=== PATIENT | female | born 1950 | race Caucasian/White ===

== ENCOUNTER 2016-08-17 17:56 | Emergency (ER) ==
[2016-08-17 18:03] VITALS: BP 120/79; TEMP 98.5; BMI 29.3
[2016-08-17 18:28] LABS: BASOPHILS # (AUTO) 0.1 K/uL (0-0.2); BASOPHILS % (AUTO) 1.4 % (0.0-3.0); EOSINOPHILS # (AUTO) 0.1 K/ul (0.0-0.7); HEMATOCRIT 40.8 % (37.0-47.0); HEMOGLOBIN 13.8 g/dl (12.0-16.0); IMMATURE GRANULOCYTE % (AUTO) 0.4 % (0.0-5.0); LYMPHOCYTES # (AUTO) 1.8 K/uL (0.60-3.4); LYMPHOCYTES % (AUTO) 36.1 (10.0-50.0); MEAN CORPUSCULAR HEMOGLOBIN 31.6 pg (27.0-31.0); MEAN CORPUSCULAR HGB CONC 33.8 (31.8-35.4); MEAN CORPUSCULAR VOLUME 93.4 fl (81.0-99.0); MONOCYTES # (AUTO) 0.4 K/uL (0.4-2.0); MONOCYTES % (AUTO) 8.2 (0-10); NEUTROPHILS # (AUTO) 2.7 K/ul (2.0-6.9); NEUTROPHILS % (AUTO) 52.9; PLATELET COUNT 30 10^3/uL (140-440); RED BLOOD COUNT 4.37 10^6/ul (4.20-5.40)
--- NOTE | 2016-08-17 18:38 | ED.PDOC ---
General ED Provider: Dr. VINCENT SCOTT JR Chief Complaint: Non-specific Complaint Stated Complaint: had outpt labs done this am--staff notified that platelets were low and she needed to come to er for eval--[facility]--has downs syndrome--staff member who brought pt does not know results[ End ]98.5 57 16 96% 120/79moderate -downs syndrome-- [id number] [facility]--had out pt labs done this am--notified to come to er for eval[ End ]office helper states she was told normal platelets are 140 to 200 and patent's were 10,. patietn denies concerns states no pain no bruising Time Seen by Physician: 18:37 Mode of Arrival: Walk-In Information Source: Assisted Living Exam Limitations: Other (MR) Primary Care Provider: JEANIE HARTMANN Nursing and Triage Documentation Reviewed and Agree: No Review of Systems - Review Of Systems Constitutional: Reports: No symptoms Eyes: Reports: No symptoms Ears, Nose, Mouth, Throat: Reports: No symptoms Respiratory: Reports: No symptoms Cardiac: Reports: No symptoms GI: Reports: No symptoms : Reports: No symptoms Musculoskeletal: Reports: No symptoms Skin: Reports: No symptoms Neurological: Reports: Cognitive dysfunction Endocrine: Reports: No symptoms Hematologic/Lymphatic: Reports: No symptoms All Other Systems: Other Past Medical History - Past Medical History Previously Healthy: Yes Endocrine: Reports: None Cardiovascular: Reports: None, Other (edema) Respiratory: Reports: None Hematological: Reports: None, Other (low platelets) Gastrointestinal: Reports: None, Other (dysphagia) Genitourinary: Reports: None Neuro/Psych: Reports: None Musculoskeletal: Reports: None Cancer: Reports: None Last Menstrual Period: menopause 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 - Surgical History General Surgical History: Reports: Unknown - Family History Family History: Reports: Unknown - Social History Smoking Status: Never smoker Hx Substance Use: No Alcohol Screening: None Physical Exam - Physical Exam Appearance: Well-appearing, Thin Eyes: KATIE, EOMI, Conjunctiva clear ENT: Ears normal, Nose normal, Oropharynx normal Neck: Supple Respiratory: Airway patent, Breath sounds clear, Breath sounds equal, Respirations nonlabored Cardiovascular: RRR, Pulses normal, No rub, No murmur GI/: Soft, Nontender, No masses, Bowel sounds normal, No Organomegaly Musculoskeletal: Normal strength, ROM intact, No edema, No calf tenderness Skin: Warm, Dry, Normal color (note right fourth finger is slightly bluish at tip no other ecchymoses or petechiae) Neurological: Sensation intact, Motor intact, Reflexes intact, Cranial nerves intact, Alert, Oriented Psychiatric: Affect appropriate, Mood appropriate Critical Care Note - Critical Care Note Total Time (mins): 0 Course - Course Hematology/Chemistry: 08/17/16 18:20 Orders, Labs, Meds: Lab Review 08/17/16 18:20 WBC 5.10 RBC 4.37 Hgb 13.8 Hct 40.8 MCV 93.4 MCH 31.6 H MCHC 33.8 RDW Coeff of Soila 13.3 Plt Count 30 L Immature Gran % (Auto) 0.4 Neut % (Auto) 52.9 Lymph % (Auto) 36.1 [place] % (Auto) 8.2 Eos % (Auto) 1.0 Baso % (Auto) 1.4 Immature Gran # (Auto) 0.0 Neut # 2.7 Lymph # 1.8 [place] # 0.4 Eos # 0.1 Baso # 0.1 Orders Category Date Time Status CBC W/ AUTO DIFF Stat LAB 08/17/16 18:20 Completed Vital Signs: Temp Pulse Resp BP Pulse Ox 08/17/16 17:56 98.5 F 57 L 16 120/79 96 Departure - Departure Time of Disposition: 18:42 Disposition: HOME SELF-CARE Discharge Problem: Idiopathic thrombocytopenia, Down's syndrome Instructions: Thrombocytopenia (ED), Myelodysplastic Syndromes (ED) Condition: Good Pt referred to PMD for follow-up: Yes Additional Instructions: Thrombocytopenia(low platelets) may be associated with bleeding tonight platelets are 30 return if headache black or bloody stools or vomiting return if bruises on three parts of the body or larger than one inch or if painful bruises call PMD in morning for hematology referral recommend recheck platelets weekly until over 50 no ibuprofen(advil) no naprosyn(aleve) no aspirin Allergies/Adverse Reactions: Allergies No Known Allergies Allergy (Unverified 08/17/16 18:05) Home Medications: Ambulatory Orders Acetaminophen [Tylenol] 650 mg PO Q4H PRN 08/17/16 Famotidine 20 mg PO BID 08/17/16 Furosemide [Lasix Tab] 40 mg PO QDAC 08/17/16 Polyvinyl Alcohol [Akwa Tears] 15 ml OP BID 08/17/16 Potassium Chloride [Micro-K Cap] 10 meq PO DAILY 08/17/16
== END 2016-08-17 19:01 | disposition home or self-care (01) ==
LOC: ED 17:56
DX: D69.3 Immune thrombocytopenic purpura (principal); Q90.9 Down syndrome, unspecified; Z79.899 Other long term (current) drug therapy
CPT/HCPCS: 36415; 85025; 99282

== ENCOUNTER 2016-10-21 08:50 | Outpatient (CLI) | payer OTHER ==
--- NOTE | 2016-10-21 11:12 | DI ---
EXAM: Modified barium swallow. History: Difficulty swallowing. Technique: Lateral video fluoroscopy was performed in conjunction with speech therapy using multipl e consistencies to evaluate swallowing function. Findings / impression: No aspiration or penetration was observed. Mild degenerative changes of the visualized cervical spine. Please see dedicated speech pathology report for additional details.
== END 2016-10-21 08:51 | disposition home or self-care (01) ==
LOC: LAB 08:50
PROVIDERS: ATTEND Physician Assistant
DX: R13.10 Dysphagia, unspecified (principal)
CPT/HCPCS: 36415; 84439; 84443

== ENCOUNTER 2016-11-14 15:51 | Outpatient (CLI) ==
--- NOTE | 2016-11-14 16:54 | CT ---
EXAM: CT head without contrast HISTORY: Headache COMPARISON: None. TECHNIQUE: Helical axial CT of the head was performed without contrast. Coronal and sagittal reconst ructions were performed. FINDINGS: There is no acute intracranial abnormality. There is no hemorrhage, mass, midline shift, abnormal e xtra-axial fluid collection, hydrocephalus or evolving ischemia. The ivey-white matter junction is w ell maintained. There is moderate atrophy. There are prominent bilateral symmetric basal ganglia ca lcifications. Brain parenchyma, ventricles and sulci are otherwise normal. There are no acute calvarial lesions. Visualized orbits and globes are unremarkable. The mastoid a ir cells demonstrate no significant soft tissue opacification. The right maxillary sinus is complete ly opacified with dense material consistent with chronic sinusitis. IMPRESSION: 1. No acute intracranial abnormality. 2. Prominent basal ganglia calcifications could be physiologic or metabolic. 3. Atrophy. 4. Chronic right maxillary sinusitis.
--- NOTE | 2016-11-14 16:58 | CT ---
EXAM: CT neck was performed without contrast. TECHNIQUE: Helical axial CT of the neck was performed without contrast with coronal and sagittal re constructions. COMPARISON: CT head from same day HISTORY: Stiff neck and fever FINDINGS: There is no mass or pathologic adenopathy identified. The fat planes of the deep face an d neck are well preserved. The visualized salivary glands are symmetric with no mass lesions or inf lammation. The thyroid gland is unremarkable. The airway is widely patent. There are no tonsillar masses. The tongue is symmetric. The vocal cords are symmetric. There is no focal abnormality see n in the subglottic glottic or supraglottic airway. The visualized orbits are symmetric with no mas s lesions. The lung apices show no infiltrate or masses. There is evidence of old granulomatous dis ease. There are no acute osseous abnormalities. IMPRESSION: 1. No acute abnormality in the neck. Specifically there is no pathologic adenopathy or inflammator y process.
--- NOTE | 2016-11-14 17:12 | DI ---
Exam: Six x-rays of the cervical spine. Comparison: CT soft tissue neck performed on the same day. Reason for exam: Stiff neck. FINDINGS: No acute fracture. There is moderate to marked multilevel degenerative disease with inte rvertebral body disc space height loss and osteophyte formation. The imaged osseous structures are diffusely demineralized. The dens is intact on the Villegas view. The prevertebral soft tissues are w ithin normal limits. The patient is partially edentulous. Impression: 1. No acute fracture is seen within the cervical spine. 2. Moderate to severe multilevel degenerative disease. If clinical concern exists for radiculopath y or myelopathy MRI may be performed.
== END 2016-11-14 15:52 | disposition home or self-care (01) ==
LOC: RAD 15:51
PROVIDERS: ATTEND Physician Assistant
DX: M54.2 Cervicalgia (principal); S16.1XXA Strain of muscle, fascia and tendon at neck level, initial encounter

== ENCOUNTER 2016-12-01 15:25 | Outpatient (CLI) ==
[2016-12-01 15:50] LABS: BASOPHILS # (AUTO) 0.1 K/uL (0-0.2); BASOPHILS % (AUTO) 1.2 % (0.0-3.0); EOSINOPHILS # (AUTO) 0.1 K/ul (0.0-0.7); EOSINOPHILS % (AUTO) 1.4 % (0.0-7.0); HEMATOCRIT 39.5 % (37.0-47.0); HEMOGLOBIN 13.6 g/dl (12.0-16.0); IMMATURE GRANULOCYTE % (AUTO) 0.6 % (0.0-5.0); LYMPHOCYTES # (AUTO) 1.8 K/uL (0.60-3.4); LYMPHOCYTES % (AUTO) 26.8 (10.0-50.0); MEAN CORPUSCULAR HEMOGLOBIN 31.7 pg (27.0-31.0); MEAN CORPUSCULAR HGB CONC 34.4 (31.8-35.4); MEAN CORPUSCULAR VOLUME 92.1 fl (81.0-99.0); MONOCYTES # (AUTO) 0.5 K/uL (0.4-2.0); MONOCYTES % (AUTO) 7.6 (0-10); NEUTROPHILS # (AUTO) 4.1 K/ul (2.0-6.9); NEUTROPHILS % (AUTO) 62.4; RED BLOOD COUNT 4.29 10^6/ul (4.20-5.40); WHITE BLOOD COUNT 6.57 K/ul (4.6-10.2)
[2016-12-01 16:02] LABS: ANION GAP 16.6; BILIRUBIN,TOTAL 0.33 mg/dL (0.00-1.20); BUN/CREATININE RATIO 18.07; CALCIUM 8.7 mg/dL (8.2-10.2); CREATININE 0.83 mg/dL (0.60-1.30); POTASSIUM 3.6 mmol/L (3.5-5.10)
[2016-12-01 16:03] LABS: ALBUMIN 3.4 g/dL (3.4-5.0); ALBUMIN/GLOBULIN RATIO 0.92; TOTAL PROTEIN 7.1 g/dL (5.8-8.1)
[2016-12-01 16:12] LABS: ERYTHROCYTE SEDIMENTATION RATE 28 mm/hr (0-20); ESR INTERNAL QC INTERNAL QC VALID
[2016-12-01 16:44] LABS: PLATELET COUNT 148 10^3/uL (140-440)
== END 2016-12-01 15:26 | disposition home or self-care (01) ==
LOC: LAB 15:25
PROVIDERS: ATTEND Physician Assistant
DX: R51 Headache (principal)
CPT/HCPCS: 36415; 80053; 85025; 85651; 86140

== ENCOUNTER 2016-12-06 10:30 | Outpatient (CLI) | payer OTHER ==
--- NOTE | 2016-12-06 13:00 | DEXA ---
EXAM: Bone densitometry. History: Postmenopausal. Findings: Evaluation of the lumbar spine reveals a total bone mineral density of 1.309 grams per centimeter sq uared with T-score of 1.1. Evaluation of the left hip reveals a total bone mineral density of 0.739 grams per centimeter square d with T-score of negative 2.1. Evaluation of the right hip reveals a total bone mineral density of 0.857 grams per centimeter squar ed with T-score of negative 1.2 Impression: 1. Normal bone mineral density of the lumbar spine. 2. Osteopenia of bilateral hips
--- NOTE | 2016-12-07 10:21 | MRI ---
EXAM: Cervical spine MRI with and without intravenous contrast. HISTORY: Neck pain. COMPARISON: Cervical spine radiographs 11/14/2016 and soft tissue neck 11/14/2016. TECHNIQUE: Multiplanar, multisequence MR images were acquired of the cervical spine before and afte r administration of intravenous contrast. Some of the sequences are degraded by decreased signal-to- noise. FINDINGS: The sella is expanded and the pituitary gland is small and flattened inferiorly consisten t with a mostly empty sella. The craniocervical junction is unremarkable. The cervical cord has no rmal signal intensity. There is no abnormal leptomeningeal contrast enhancement. The patients head is tilted towards the right shoulder. There is mild accentuation of the usual cervical lordosis in the mid cervical spine and mild accentuation of the reversal in curvature to the thoracic kyphosis centered at C7-T1. There is 2 mm retrolisthesis of C2 on C3 and C3 on C4 and 1.2 mm retrolisthesis of C4 on C5. There is minor chronic flattening of the anterior superior endplates of C4 and C5 and mild chronic flattening of the anterior superior endplates of C7 and T1. There is ventral spondylos is in the cervical spine and there is osteophytosis with marked disc space narrowing and mild to mod erate degenerative endplate changes from C2-3 to C7-T1. C1-2: There is inflammation at the articulation between the right lateral masses of C1 and C2 with irregularity of the articular surfaces, subchondral erosions or cysts and synovial perforation with intermediate to slightly bright T1 and bright STIR signal compatible with inflammation or edema. Th is has produced mild destruction of the inferior right C1 lateral mass and moderate destruction of t he superior right C2 lateral mass. These findings are suggestive of an inflammatory arthritis. C2-3: There is retrolisthesis of C2 on C3 which produces a posterior disc osteophyte complex that m ildly indents the cervical cord. Ligamentum flavum hypertrophy indents the posterior cord and there is minor right and mild left hypertrophic facet arthropathy. This causes mild left neural foramina l stenosis and mild spinal stenosis. AP diameter of the thecal sac is 7.2 mm. C3-4: There is retrolisthesis of C3 on C4 which produces a posterior disc osteophyte complex. Left uncovertebral hypertrophy and mild right and minor left facet arthropathy is present. There is mod erate right and mild to moderate left neural foraminal stenosis. Ligamentum flavum hypertrophy is p resent. There is mild spinal stenosis. AP diameter of the thecal sac is 7.2 mm. C4-5: There is a posterior disc osteophyte complex with a small central disc extrusion that extends below the disc level. This mildly indents the ventral cervical cord. Ligament and mild hypertroph y indents the posterior cord. There is bilateral uncovertebral hypertrophy and hypertrophic facet a rthropathy. This causes mild to moderate spinal stenosis and probable moderately severe right and m oderate left neural foraminal stenosis. AP diameter of the thecal sac is 6.5 mm. C5-6: There is a posterior disc osteophyte complex that is asymmetric to the left with a more focal left paracentral component that minimally indents left ventral cervical cord. Ligamentum flavum hy pertrophy, left uncovertebral hypertrophy and mild bilateral facet arthropathy is present, greater o n the right. There is mild to moderate left and mild right neural foraminal stenosis. There is min or spinal stenosis. AP diameter of the thecal sac is 9.4 mm. C6-7: There is a dorsal spondylotic ridge with a more focal central component that is slightly asym metric to the left which minimally indents the cord. Right uncovertebral hypertrophy is present and there is mild spinal stenosis. AP diameter of the thecal sac is 8.5 mm. C7-T1: There is anterolisthesis of C7 on T1 which causes a pseudo disc bulge. This produces mild p rominence of the posterior superior plate of T1 which minimally indents the thoracic cord at the cer vical thoracic junction although cerebrospinal fluid is preserved around the cord. There is no cent ral canal stenosis or foraminal stenosis. IMPRESSION: 1. Extensive cervical degenerative spondylosis from C1-2 to C7-T1. 2. Findings consistent with an inflammatory arthritis involving the articulation between the right lateral masses of C1 and C2. This is associated with mild rightward tilting of the head with respect to the cervical spine. 3. Mild C2-3, C3-4 and C7-T1 and mild to moderate C4-5 spinal stenosis. 4. Moderate discogenic disease C4-5 with small central disc extrusion. 5. Multilevel foraminal stenosis. Cervical CT myelography may be helpful to further define the arya nisa.
== END 2016-12-06 10:31 | disposition home or self-care (01) ==
LOC: RAD 10:30
PROVIDERS: ATTEND Physician Assistant
DX: M54.2 Cervicalgia (principal); Z78.0 Asymptomatic menopausal state

== ENCOUNTER 2017-01-04 07:28 | Outpatient (CLI) | payer OTHER ==
[2017-01-04 07:42] LABS: BASOPHILS # (AUTO) 0.1 K/uL (0-0.2); BASOPHILS % (AUTO) 1.4 % (0.0-3.0); EOSINOPHILS # (AUTO) 0.1 K/ul (0.0-0.7); EOSINOPHILS % (AUTO) 1.4 % (0.0-7.0); HEMATOCRIT 42.8 % (37.0-47.0); HEMOGLOBIN 14.4 g/dl (12.0-16.0); IMMATURE GRANULOCYTE % (AUTO) 0.6 % (0.0-5.0); LYMPHOCYTES # (AUTO) 1.2 K/uL (0.60-3.4); LYMPHOCYTES % (AUTO) 32.3 (10.0-50.0); MEAN CORPUSCULAR HEMOGLOBIN 31.2 pg (27.0-31.0); MEAN CORPUSCULAR HGB CONC 33.6 (31.8-35.4); MEAN CORPUSCULAR VOLUME 92.6 fl (81.0-99.0); MONOCYTES # (AUTO) 0.3 K/uL (0.4-2.0); MONOCYTES % (AUTO) 7.9 (0-10); NEUTROPHILS % (AUTO) 56.4; RED BLOOD COUNT 4.62 10^6/ul (4.20-5.40); WHITE BLOOD COUNT 3.56 K/ul (4.6-10.2)
[2017-01-04 07:44] LABS: PLATELET COUNT 135 10^3/uL (140-440)
== END 2017-01-04 07:29 | disposition home or self-care (01) ==
LOC: LAB 07:28
PROVIDERS: ATTEND Internal Medicine
DX: D69.6 Thrombocytopenia, unspecified (principal)
CPT/HCPCS: 36415; 85025

== ENCOUNTER 2017-01-19 08:07 | Outpatient (CLI) ==
--- NOTE | 2017-01-20 08:42 | MAMMO ---
EXAM: Digital screening mammogram HISTORY: Screening COMPARISON: 04/16/2014 FINDINGS: Digital MLO and CC views of the right and left breast were performed. Computer aided de tection was utilized. There are scattered fibroglandular densities. There is no evidence for mass, asymmetry, distortion, or suspicious calcifications in either breast. IMPRESSION: 1. No evidence of malignancy in the right or left breast. 2. Annual screening mammogram is recommended in one year. BIRADS category 1, negative examination
== END 2017-01-19 08:08 | disposition home or self-care (01) ==
LOC: RAD 08:07
PROVIDERS: ATTEND Family Medicine
DX: Z12.31 Encounter for screening mammogram for malignant neoplasm of breast (principal); Z00.00 Encounter for general adult medical examination without abnormal findings
CPT/HCPCS: 77067

== ENCOUNTER 2017-02-02 11:45 | Outpatient (CLI) | END 2017-02-02 11:46 | disposition home or self-care (01) | LOC: CAR 11:45 | PROVIDERS: ATTEND Physician Assistant | DX: R53.83 Other fatigue (principal) | CPT/HCPCS: 93005; 93010 ==

== ENCOUNTER 2017-02-06 16:33 | Inpatient (IN) ==
[2017-02-06 17:37] LABS: ADD URINE MICROSCOPIC YES; BILIRUBIN,URINE 1+ (NEGATIVE); KETONES,URINE Trace (NEGATIVE); LEUKOCYTE ESTERASE ,URINE 2+ (NEGATIVE); NITRITE,URINE Negative (NEGATIVE); PROTEIN,URINE 1+ (NEGATIVE); URINE, BLOOD Trace-intact (NEGATIVE)
[2017-02-06 17:42] LABS: BACTERIA,URINE 2+ (NOT PRESENT)
[2017-02-06 17:54] LABS: ANION GAP 12.5; BILIRUBIN,TOTAL 0.37 mg/dL (0.00-1.20); BUN/CREATININE RATIO 13.75; CALCIUM 8.7 mg/dL (8.2-10.2); CREATININE 0.8 mg/dL (0.60-1.30); POTASSIUM 3.5 mmol/L (3.5-5.10)
[2017-02-06 18:17] LABS: BASOPHILS % (AUTO) 0.7 % (0.0-3.0); EOSINOPHILS # (AUTO) 0.1 K/ul (0.0-0.7); EOSINOPHILS % (AUTO) 1.4 % (0.0-7.0); HEMATOCRIT 36.9 % (37.0-47.0); HEMOGLOBIN 12.8 g/dl (12.0-16.0); IMMATURE GRANULOCYTE % (AUTO) 1.2 % (0.0-5.0); LYMPHOCYTES # (AUTO) 1.8 K/uL (0.60-3.4); MEAN CORPUSCULAR HEMOGLOBIN 31.6 pg (27.0-31.0); MEAN CORPUSCULAR HGB CONC 34.7 (31.8-35.4); MEAN CORPUSCULAR VOLUME 91.1 fl (81.0-99.0); MONOCYTES # (AUTO) 0.5 K/uL (0.4-2.0); MONOCYTES % (AUTO) 7.7 (0-10); NEUTROPHILS # (AUTO) 3.5 K/ul (2.0-6.9); PLATELET COUNT 110 10^3/uL (140-440); RED BLOOD COUNT 4.05 10^6/ul (4.20-5.40); WHITE BLOOD COUNT 5.86 K/ul (4.6-10.2)
[2017-02-06] MEDS ORDERED: ROCEPHIN 1 GM in SODIUM CHLORIDE 50 ML IV STA (18:24)
--- NOTE | 2017-02-06 18:24 | ED.PDOC ---
General ED Provider: Dr. AIDA BEAVERS Chief Complaint: Diarrhea Stated Complaint: DIARRHEA Time Seen by Physician: 16:33 Mode of Arrival: Walk-In Information Source: Assisted Living Exam Limitations: No limitations Primary Care Provider: ANNEMARIE WOMACK Nursing and Triage Documentation Reviewed and Agree: Yes GI Complaint Exam - Vomiting/Diarrhea Complaint/Exam Onset/Duration: 2 DAYS Symptoms Are: Resolved Episodes of Vomiting over last 24 Hours: 0 Episodes of Diarrhea Over Last 24 Hours: 6 Initial Severity: Mild Current Severity: None Character of Vomiting: Reports: Non-bilious Aggravating: Reports: None Alleviating: Reports: None Associated Signs and Symptoms: Denies: Dizziness, Light-headedness, Melena, Hematemesis, Fever, Abdominal pain, Cramping Non-GI Risk Factors: Reports: None Surgical Obstruction Risk Factors: Reports: None Related Surgical History: Reports: None Abdominal Findings: Present: None Review of Systems - Review Of Systems Constitutional: Reports: No symptoms Eyes: Reports: No symptoms Ears, Nose, Mouth, Throat: Reports: No symptoms Respiratory: Reports: No symptoms Cardiac: Reports: No symptoms GI: Reports: Diarrhea : Reports: No symptoms Musculoskeletal: Reports: No symptoms Skin: Reports: No symptoms Neurological: Reports: No symptoms Endocrine: Reports: No symptoms Hematologic/Lymphatic: Reports: No symptoms All Other Systems: Reviewed and Negative Past Medical History - Past Medical History Previously Healthy: Yes Endocrine: Reports: None Cardiovascular: Reports: None, Other (edema) Respiratory: Reports: None Hematological: Reports: None, Other (low platelets) Gastrointestinal: Reports: None, Other (dysphagia) Genitourinary: Reports: None Neuro/Psych: Reports: None Musculoskeletal: Reports: None Cancer: Reports: None Last Menstrual Period: menopause 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 - Surgical History General Surgical History: Reports: Unknown - Family History Family History: Reports: Unknown - Social History Smoking Status: Never smoker Hx Substance Use: No Alcohol Screening: None Physical Exam - Physical Exam Appearance: Well-appearing, No pain distress, Well-nourished Eyes: KATIE, EOMI, Conjunctiva clear ENT: Ears normal, Nose normal, Dry mucosa Respiratory: Airway patent, Breath sounds clear, Breath sounds equal, Respirations nonlabored Cardiovascular: RRR, Pulses normal, No rub, No murmur GI/: Soft, Nontender, No masses, Bowel sounds normal, No Organomegaly Musculoskeletal: Normal strength, ROM intact, No edema, No calf tenderness Skin: Warm, Dry, Normal color Neurological: Sensation intact, Motor intact, Reflexes intact, Cranial nerves intact, Alert, Oriented Psychiatric: Affect appropriate, Mood appropriate Critical Care Note - Critical Care Note Total Time (mins): 0 Course - Course Hematology/Chemistry: 02/06/17 17:30 02/06/17 17:30 Orders, Labs, Meds: Lab Review 02/06/17 02/06/17 02/06/17 17:30 17:30 17:31 WBC 5.86 RBC 4.05 L Hgb 12.8 Hct 36.9 L MCV 91.1 MCH 31.6 H MCHC 34.7 RDW Coeff of [place]ila 13.4 Plt Count 110 L Immature Gran % (Auto) 1.2 Neut % (Auto) 59.0 Lymph % (Auto) 30.0 [place] % (Auto) 7.7 Eos % (Auto) 1.4 Baso % (Auto) 0.7 Immature Gran # (Auto) 0.1 Neut # 3.5 Lymph # 1.8 [place] # 0.5 Eos # 0.1 Baso # 0.0 Sodium 144 Potassium 3.5 Chloride 105 Carbon Dioxide 30 Anion Gap 12.5 BUN 11 Creatinine 0.80 Estimated GFR (MDRD) 71.00 BUN/Creatinine Ratio 13.75 Glucose 90 Calcium 8.7 Total Bilirubin 0.37 AST 23 ALT 22 Alkaline Phosphatase 78 Total Protein 6.0 Albumin 3.0 L Globulin 3.0 Albumin/Globulin Ratio 1.00 Urine Color Yellow Urine Clarity Cloudy Urine pH 6.0 Ur Specific [place] 1.015 Urine Protein 1+ Urine Glucose (UA) Negative Urine Ketones Trace Urine Blood Trace-intact Urine Nitrite Negative Urine Bilirubin 1+ Urine Urobilinogen 0.2 Ur Leukocyte Esterase 2+ Urine Microscopic WBC 50-100 Ur Squamous Epith Cells 2-5 Ur Transition Epith Cell 0-2 Calcium Oxalate Crystal 1+ Urine Bacteria 2+ Orders Category Date Time Status ADMIT PATIENT INPATIENT .TO [facility] (NON-MONITORED ADMISSION 02/06/17 18: 20 Ordered BED) ACTIVITY .Complete BR CARE 02/06/17 18:20 Ordered INTAKE & OUTPUT Q8HR CARE 02/06/17 18:20 Ordered VITAL SIGNS Q8HR CARE 02/06/17 18:20 Ordered REGULAR DIET DIETARY 02/06/17 Dinner Ordered CBC W/ AUTO DIFF DAILY@0600 LAB 02/07/17 06:00 Ordered CBC W/ AUTO DIFF DAILY@0600 LAB 02/08/17 06:00 Ordered CBC W/ AUTO DIFF DAILY@0600 LAB 02/09/17 06:00 Ordered CBC W/ AUTO DIFF DAILY@0600 LAB 02/10/17 06:00 Ordered CBC W/ AUTO DIFF DAILY@0600 LAB 02/11/17 06:00 Ordered CBC W/ AUTO DIFF DAILY@0600 LAB 02/12/17 06:00 Ordered CBC W/ AUTO DIFF DAILY@06 LAB 02/13/17 06:00 Ordered CBC W/ AUTO DIFF DAILY@06 LAB 02/14/17 06:00 Ordered CBC W/ AUTO DIFF DAILY@0600 LAB 02/15/17 06:00 Ordered CBC W/ AUTO DIFF DAILY@06 LAB 02/16/17 06:00 Ordered CBC W/ AUTO DIFF DAILY@0600 LAB 02/17/17 06:00 Ordered CBC W/ AUTO DIFF DAILY@06 LAB 02/18/17 06:00 Ordered CBC W/ AUTO DIFF DAILY@06 LAB 02/19/17 06:00 Ordered CBC W/ AUTO DIFF DAILY@06 LAB 02/20/17 06:00 Ordered CBC W/ AUTO DIFF DAILY@06 LAB 02/21/17 06:00 Ordered CBC W/ AUTO DIFF DAILY@06 LAB 02/22/17 06:00 Ordered CBC W/ AUTO DIFF DAILY@06 LAB 02/23/17 06:00 Ordered CBC W/ AUTO DIFF DAILY@06 LAB 02/24/17 06:00 Ordered CBC W/ AUTO DIFF DAILY@06 LAB 02/25/17 06:00 Ordered CBC W/ AUTO DIFF DAILY@06 LAB 02/26/17 06:00 Ordered CBC W/ AUTO DIFF Stat LAB 02/06/17 17:30 Completed COMPREHENSIVE METABOLIC PANEL DAILY@0600 LAB 02/07/17 06:00 Ordered COMPREHENSIVE METABOLIC PANEL DAILY@0600 LAB 02/08/17 06:00 Ordered COMPREHENSIVE METABOLIC PANEL DAILY@0600 LAB 02/09/17 06:00 Ordered COMPREHENSIVE METABOLIC PANEL DAILY@0600 LAB 02/10/17 06:00 Ordered COMPREHENSIVE METABOLIC PANEL DAILY@0600 LAB 02/11/17 06:00 Ordered COMPREHENSIVE METABOLIC PANEL DAILY@0600 LAB 02/12/17 06:00 Ordered COMPREHENSIVE METABOLIC PANEL DAILY@0600 LAB 02/13/17 06:00 Ordered COMPREHENSIVE METABOLIC PANEL DAILY@0600 LAB 02/14/17 06:00 Ordered COMPREHENSIVE METABOLIC PANEL DAILY@0600 LAB 02/15/17 06:00 Ordered COMPREHENSIVE METABOLIC PANEL DAILY@0600 LAB 02/16/17 06:00 Ordered COMPREHENSIVE METABOLIC PANEL DAILY@0600 LAB 02/17/17 06:00 Ordered COMPREHENSIVE METABOLIC PANEL DAILY@0600 LAB 02/18/17 06:00 Ordered COMPREHENSIVE METABOLIC PANEL DAILY@0600 LAB 02/19/17 06:00 Ordered COMPREHENSIVE METABOLIC PANEL DAILY@0600 LAB 02/20/17 06:00 Ordered COMPREHENSIVE METABOLIC PANEL DAILY@0600 LAB 02/21/17 06:00 Ordered COMPREHENSIVE METABOLIC PANEL DAILY@0600 LAB 02/22/17 06:00 Ordered COMPREHENSIVE METABOLIC PANEL DAILY@0600 LAB 02/23/17 06:00 Ordered COMPREHENSIVE METABOLIC PANEL DAILY@0600 LAB 02/24/17 06:00 Ordered COMPREHENSIVE METABOLIC PANEL DAILY@0600 LAB 02/25/17 06:00 Ordered COMPREHENSIVE METABOLIC PANEL DAILY@0600 LAB 02/26/17 06:00 Ordered COMPREHENSIVE METABOLIC PANEL Stat LAB 02/06/17 17:30 Completed URINALYSIS C & S IF INDICATED Stat LAB 02/06/17 17:31 Completed URINE CULTURE Stat LAB 02/06/17 16:47 Received Ceftriaxone Sodium [Rocephin] 1 gm MEDS 02/06/17 18:24 Ordered 0.9 % Sodium Chloride [Sodium Chloride] 50 ml IV ONCE Metronidazole [Metrocream] MEDS 02/06/17 21:00 Ordered 45 gm TP BID Polyvinyl Alcohol [Artificial Tears Opth Alise] MEDS 02/06/17 21:00 Ordered 15 ml OP BID Sodium Chloride 0.9% [Sodium Chloride] 1,000 ml MEDS 02/06/17 18:30 Ordered IV 75 mls/hr Medications Generic Name Dose Route Start Last Admin Trade Name Freq PRN Reason Stop Dose Admin Artificial Tears drop 02/06/17 21:00 Artificial Tears Opth Alise OP BID YULISSA Sodium Chloride 1,000 mls @ 75 mls/hr 02/06/17 18:30 Sodium Chloride IV .[id number] YULISSA Non-Formulary Medication 45 gm 02/06/17 21:00 Metronidazole [Metrocream] TP BID YULISSA Vital Signs: Temp Pulse Resp BP Pulse Ox 02/06/17 16:33 99.4 F 59 L 20 123/74 96 Departure - Departure Time of Disposition: 18:23 Disposition: ADMITTED INPATIENT Discharge Problem: Diarrhea, Dehydration, UTI (urinary tract infection) Instructions: Dehydration (ED) Condition: Fair Pt referred to PMD for follow-up: Yes Allergies/Adverse Reactions: Allergies No Known Allergies Allergy (Verified 02/06/17 16:42) Home Medications: Ambulatory Orders Acetaminophen [Tylenol] 650 mg PO Q4H PRN 08/17/16 Polyvinyl Alcohol [Akwa Tears] 15 ml OP BID 08/17/16 Calcium Carbonate/Vitamin D3 [Calcium 600 + Vit D 400 Tablet] 1 each PO DAILY Metronidazole [Metrocream] 45 gm TP BID 02/06/17 Omeprazole [Prilosec] 20 mg PO QDAC 02/06/17
[2017-02-06] MEDS ORDERED: ROCEPHIN ONE (18:35)
[2017-02-06] MEDS: SODIUM CHLORIDE 1,000 ML IV SCH (18:47)
[2017-02-06 20:19] VITALS: BMI 27.4
[2017-02-06] MEDS ORDERED: METRONIDAZOLE 45 GM TP SCH (21:00)
[2017-02-07 05:45] LABS: ALBUMIN 2.7 g/dL (3.4-5.0); ALBUMIN/GLOBULIN RATIO 1.08; ANION GAP 12.4; BILIRUBIN,TOTAL 0.44 mg/dL (0.00-1.20); BUN/CREATININE RATIO 12.32; CALCIUM 8.1 mg/dL (8.2-10.2); CREATININE 0.73 mg/dL (0.60-1.30); POTASSIUM 3.4 mmol/L (3.5-5.10); TOTAL PROTEIN 5.2 g/dL (5.8-8.1)
[2017-02-07 06:09] LABS: BASOPHILS % (AUTO) 0.8 % (0.0-3.0); EOSINOPHILS # (AUTO) 0.1 K/ul (0.0-0.7); EOSINOPHILS % (AUTO) 1.5 % (0.0-7.0); HEMATOCRIT 34.3 % (37.0-47.0); HEMOGLOBIN 11.9 g/dl (12.0-16.0); IMMATURE GRANULOCYTE % (AUTO) 0.6 % (0.0-5.0); LYMPHOCYTES # (AUTO) 1.6 K/uL (0.60-3.4); LYMPHOCYTES % (AUTO) 33.6 (10.0-50.0); MEAN CORPUSCULAR HEMOGLOBIN 31.8 pg (27.0-31.0); MEAN CORPUSCULAR HGB CONC 34.7 (31.8-35.4); MEAN CORPUSCULAR VOLUME 91.7 fl (81.0-99.0); MONOCYTES # (AUTO) 0.4 K/uL (0.4-2.0); NEUTROPHILS # (AUTO) 2.6 K/ul (2.0-6.9); NEUTROPHILS % (AUTO) 54.5; RED BLOOD COUNT 3.74 10^6/ul (4.20-5.40); WHITE BLOOD COUNT 4.76 K/ul (4.6-10.2)
[2017-02-07 06:11] LABS: PLATELET COUNT 79 10^3/uL (140-440)
[2017-02-07] MEDS ORDERED: K-DUR PO STA (08:19)
[2017-02-07] MEDS: SODIUM CHLORIDE 1,000 ML IV SCH ×2 (09:49→23:24)
[2017-02-07] MEDS: ARTIFICIAL TEARS OPTH SOL OP SCH ×3 (09:50→21:00)
[2017-02-07] MEDS: ROCEPHIN 1 GM in SODIUM CHLORIDE 50 ML IV SCH (09:51)
[2017-02-07] MEDS: METRONIDAZOLE 45 GM TP SCH ×2 (09:52→20:46)
--- NOTE | 2017-02-07 16:39 | CT ---
EXAM: CT Abdomen without contrast. CT Pelvis without contrast. HISTORY: Lower abdominal pain, diarrhea. COMPARISON: None available. TECHNIQUE: Multiple axial images of the abdomen and pelvis were obtained without intravenous contras t. Images were reformatted in the coronal plane. FINDINGS: Please note that evaluation of the abdominal and pelvic structures is limited due to lack of intravenous contrast. Areas of subsegmental atelectasis noted in the lung bases. Calcified granuloma seen in the right low er lobe. Moderate sized hiatal hernia is present. There is no evidence for bowel obstruction or acu te inflammation. The appendix is normal. The liver, gallbladder, pancreas, spleen, adrenal glands, and kidneys demonstrate normal contour. No calcified renal stones or hydronephrosis identified. Circumscribed rounded mass in the region of the cervix measures up to 8.5 x 7.9 x 7.7 centimeters on axial image 69 and coronal image 40. Along the right posterior aspect of this structure is an additi onal 4.2 x 3.1 x 4.3 cm soft tissue density structure seen on axial image 65 and coronal image 56. U terine contour is normal. Urinary bladder is unremarkable. No free fluid or free air identified. IMPRESSION: 1. Large soft tissue mass in the region of the cervix with smaller adjacent right pelvic mass. Felix elation with pelvic ultrasound or pelvic MRI recommended for further characterization. 2. Moderate sized hiatal hernia.
[2017-02-08 05:29] LABS: BASOPHILS # (AUTO) 0.1 K/uL (0-0.2); BASOPHILS % (AUTO) 1.1 % (0.0-3.0); EOSINOPHILS # (AUTO) 0.1 K/ul (0.0-0.7); HEMATOCRIT 36.4 % (37.0-47.0); HEMOGLOBIN 12.2 g/dl (12.0-16.0); IMMATURE GRANULOCYTE % (AUTO) 1.1 % (0.0-5.0); LYMPHOCYTES # (AUTO) 1.3 K/uL (0.60-3.4); LYMPHOCYTES % (AUTO) 28.7 (10.0-50.0); MEAN CORPUSCULAR HEMOGLOBIN 31.1 pg (27.0-31.0); MEAN CORPUSCULAR HGB CONC 33.5 (31.8-35.4); MEAN CORPUSCULAR VOLUME 92.9 fl (81.0-99.0); MONOCYTES # (AUTO) 0.4 K/uL (0.4-2.0); MONOCYTES % (AUTO) 8.6 (0-10); NEUTROPHILS # (AUTO) 2.7 K/ul (2.0-6.9); NEUTROPHILS % (AUTO) 58.5; RED BLOOD COUNT 3.92 10^6/ul (4.20-5.40); WHITE BLOOD COUNT 4.56 K/ul (4.6-10.2)
[2017-02-08 05:37] LABS: PLATELET COUNT 35 10^3/uL (140-440)
[2017-02-08 06:04] LABS: ALBUMIN 2.4 g/dL (3.4-5.0); ALBUMIN/GLOBULIN RATIO 0.89; BILIRUBIN,TOTAL 0.3 mg/dL (0.00-1.20); BUN/CREATININE RATIO 10.6; CALCIUM 7.9 mg/dL (8.2-10.2); CREATININE 0.66 mg/dL (0.60-1.30); TOTAL PROTEIN 5.1 g/dL (5.8-8.1)
[2017-02-08] MEDS: ROCEPHIN 1 GM in SODIUM CHLORIDE 50 ML IV SCH (08:49)
[2017-02-08] MEDS: ARTIFICIAL TEARS OPTH SOL OP SCH ×2 (08:50→20:22)
[2017-02-08] MEDS: METRONIDAZOLE 45 GM TP SCH ×2 (08:50→20:22)
--- NOTE | 2017-02-08 14:25 | HP ---
DATE OF SERVICE: 02/06/17 CHIEF COMPLAINT: Diarrhea HISTORY OF PRESENT ILLNESS: This is a 66-year-old female who is a [facility] resident. She was sent from there for evaluation. The patient has been having diarrhea on and off for 1 1/2 weeks. A couple of residents at the assisted facility are also having the same, watery, nonbloody, has some abdominal cramping, decreased appetite, not eating much or drinking much. The blood pressure was somewhat low at the facility and the patient was sent for evaluation. In the emergency room, the temperature was 99.4, blood pressure 123. Dr. Correa saw the patient and the patient was clinically totally dehydrated. Initial blood pressure was 81/48. The patient was started on IV fluids there. Blood work was ordered. Low white count. Platelet count 110. BUN and creatinine were normal. Urine was cloudy and leukocyte esterase positive. Bacteria positive. At that time, the patient was admitted to the hospital for IV hydration, treatment of acute diarrhea and treatment of UTI. REVIEW OF SYSTEMS: CONSTITUTIONAL: Weakness, tiredness. No fever, no chills. HEENT: Normal. ENDOCRINE: No weight gain; no weight loss. CVS: No chest pain. No PND, no orthopnea. No shortness of breath. No PND, no orthopnea. RESPIRATORY: No cough, no congestion. No hemoptysis. GI: Diarrhea. Abdominal cramping. Unable to eat or drink much. No nausea, no vomiting. No melena. : No hematuria. No polyuria. MUSCULOSKELETAL: No joint swelling. PSYCHIATRIC: Not anxious. No depression. No suicidal thoughts. No homicidal thoughts. SKIN: Intact, no open lesions. PAST MEDICAL HISTORY: 1. History of stomach ulcer 2. Down's syndrome 3. Dependent upon ADLs PAST SURGICAL HISTORY: 1. None PERSONAL HISTORY: The patient does not smoke or drink. She lives at the assisted living facility. FAMILY HISTORY: Significant for cancer. Not able to obtain much. MEDICATIONS: (HOME) 1. Tylenol 2. Teardrops 3. Calcium with Vitamin D 4. Prilosec 5. Metoprolol ALLERGIES: NKDA PHYSICAL EXAMINATION: V/S: BP 81/48, respiratory rate 16, heart rate 51, temperature 97.1, saturation 97. HEENT: Atraumatic, normocephalic. No scleral icterus. Pallor positive. Mucosa dry. NECK: Supple. No JVD, no bruit. No lymphadenopathy. No thyromegaly. HEART: S1, S2 normal. No murmur. No cyanosis or clubbing. No ascites. LUNGS: Clear to auscultation. No rales or rhonchi. ABDOMEN: Soft; discomfort all over. Bowel sounds are active. No CVA tenderness. No rigidity or guarding. EXTREMITIES: No cyanosis, clubbing or pedal edema. MUSCULOSKELETAL: Normal joints, no swelling. NEUROLOGIC: The patient is awake, alert, does not communicate much. SKIN: Intact; no open lesions. LYMPHATIC: No lymph nodes palpable. LABS: Urine is cloudy. Leukocyte esterase is positive. Bacteria positive. Sodium 144, potassium 3.5, chloride 105, bicarb 30, BUN 11, creatinine 0.80. White count 5.86, hemoglobin 12.8, hematocrit 36.1, platelet count 110. ASSESSMENT: 1. ACUTE GASTROENTERITIS 2. DEHYDRATION 3. THROMBOCYTOPENIA 4. DEVELOPMENTAL DELAY 5. DOWN'S SYNDROME 6. UTI PLAN: 1. Admit the patient to Regular Floor 2. IV fluids 3. Rocephin 1 gm daily 4. Continue home medications 5. Daily I & O's TIME SPENT: MORE THAN 70 minutes MTDD
--- NOTE | 2017-02-08 14:54 | US ---
EXAM: PELVIC ULTRASOUND COMPLETE HISTORY: Pelvic mass suggested on recent CT. FINDINGS: Ultrasound pelvis transabdominal. The uterus was measured at 13.8 x 6.7 x 4.6 cm. It appears the endometrial canal is distended with d iffusely homogeneous substance and there are also areas of more soft tissue like echogenicity. At le ast one small endometrial mass or polyp is suggested measuring 0.57 cm in greatest dimension. No dis tinct endometrial stripe was seen. The ovaries were not seen. There is a small amount of left adnex al ascites. IMPRESSION: Complex pelvic findings include what may represent distension of the endometrial canal with echogenic substance/fluid and possible endometrial masses. Neoplasia is within the differential diagnosis. Fu rther imaging could include pelvic MRI.
[2017-02-08] MEDS: SODIUM CHLORIDE 1,000 ML IV SCH (15:40)
[2017-02-08] MEDS: TYLENOL PO PRN (16:32)
[2017-02-09] MEDS: SODIUM CHLORIDE 1,000 ML IV SCH ×2 (03:50→22:29)
[2017-02-09 05:10] LABS: BASOPHILS # (AUTO) 0.1 K/uL (0-0.2); EOSINOPHILS # (AUTO) 0.2 K/ul (0.0-0.7); EOSINOPHILS % (AUTO) 3.1 % (0.0-7.0); HEMATOCRIT 34.3 % (37.0-47.0); HEMOGLOBIN 11.6 g/dl (12.0-16.0); IMMATURE GRANULOCYTE % (AUTO) 0.8 % (0.0-5.0); LYMPHOCYTES # (AUTO) 1.5 K/uL (0.60-3.4); LYMPHOCYTES % (AUTO) 29.2 (10.0-50.0); MEAN CORPUSCULAR HEMOGLOBIN 31.4 pg (27.0-31.0); MEAN CORPUSCULAR HGB CONC 33.8 (31.8-35.4); MONOCYTES # (AUTO) 0.5 K/uL (0.4-2.0); MONOCYTES % (AUTO) 8.7 (0-10); NEUTROPHILS % (AUTO) 57.2; RED BLOOD COUNT 3.69 10^6/ul (4.20-5.40); WHITE BLOOD COUNT 5.18 K/ul (4.6-10.2)
[2017-02-09 05:19] LABS: PLATELET COUNT 72 10^3/uL (140-440)
[2017-02-09 05:43] LABS: ALBUMIN 2.4 g/dL (3.4-5.0); ALBUMIN/GLOBULIN RATIO 1.04; ANION GAP 7.6; BILIRUBIN,TOTAL 0.3 mg/dL (0.00-1.20); BUN/CREATININE RATIO 9.52; CALCIUM 7.6 mg/dL (8.2-10.2); CREATININE 0.63 mg/dL (0.60-1.30); POTASSIUM 3.6 mmol/L (3.5-5.10); TOTAL PROTEIN 4.7 g/dL (5.8-8.1)
[2017-02-09] MEDS: ARTIFICIAL TEARS OPTH SOL OP SCH ×2 (08:26→20:33)
[2017-02-09] MEDS: METRONIDAZOLE 45 GM TP SCH ×2 (08:27→20:34)
[2017-02-09] MEDS: ROCEPHIN 1 GM in SODIUM CHLORIDE 50 ML IV SCH (08:27)
[2017-02-09] MEDS: TYLENOL PO PRN (08:36)
[2017-02-10 05:30] LABS: ALBUMIN 2.5 g/dL (3.4-5.0); ALBUMIN/GLOBULIN RATIO 0.89; ANION GAP 12.4; BILIRUBIN,TOTAL 0.33 mg/dL (0.00-1.20); BUN/CREATININE RATIO 9.23; CALCIUM 7.8 mg/dL (8.2-10.2); CREATININE 0.65 mg/dL (0.60-1.30); POTASSIUM 4.4 mmol/L (3.5-5.10); TOTAL PROTEIN 5.3 g/dL (5.8-8.1)
[2017-02-10 07:06] LABS: BASOPHILS # (AUTO) 0.1 K/uL (0-0.2); BASOPHILS % (AUTO) 0.7 % (0.0-3.0); EOSINOPHILS # (AUTO) 0.1 K/ul (0.0-0.7); EOSINOPHILS % (AUTO) 1.5 % (0.0-7.0); HEMATOCRIT 32.3 % (37.0-47.0); HEMOGLOBIN 10.9 g/dl (12.0-16.0); IMMATURE GRANULOCYTE % (AUTO) 0.9 % (0.0-5.0); LYMPHOCYTES # (AUTO) 1.7 K/uL (0.60-3.4); LYMPHOCYTES % (AUTO) 24.9 (10.0-50.0); MEAN CORPUSCULAR HEMOGLOBIN 31.6 pg (27.0-31.0); MEAN CORPUSCULAR HGB CONC 33.7 (31.8-35.4); MEAN CORPUSCULAR VOLUME 93.6 fl (81.0-99.0); MONOCYTES # (AUTO) 0.4 K/uL (0.4-2.0); NEUTROPHILS # (AUTO) 4.5 K/ul (2.0-6.9); RED BLOOD COUNT 3.45 10^6/ul (4.20-5.40); WHITE BLOOD COUNT 6.87 K/ul (4.6-10.2)
[2017-02-10 07:07] LABS: PLATELET COUNT 89 10^3/uL (140-440)
[2017-02-10] MEDS: ROCEPHIN 1 GM in SODIUM CHLORIDE 50 ML IV SCH (08:21)
[2017-02-10] MEDS: ARTIFICIAL TEARS OPTH SOL OP SCH (08:21)
[2017-02-10] MEDS: SODIUM CHLORIDE 1,000 ML IV SCH (09:00)
[2017-02-10] MEDS: METRONIDAZOLE 45 GM TP SCH (09:01)
[2017-02-10 09:27] VITALS: BP 110/58; TEMP 97.6
--- NOTE | 2017-02-10 09:34 | PN ---
DATE OF SERVICE: 02/07/17 SUBJECTIVE: The patient was admitted with gastroenteritis and dehydration. The patient does not have any diarrhea since admission. Blood pressure been improved. REVIEW OF SYSTEMS: CONSTITUTIONAL: No fever, no chills. HEENT: Normal. ENDOCRINE: No weight gain, no weight loss. CVS: No angina symptoms. No CHF symptoms. No palpitations. No atypical chest pain for CAD. No shortness of breath. No PND, no orthopnea. RESPIRATORY: No cough, no hemoptysis. GI: No nausea, no vomiting. Abdominal discomfort is still complaint. : No hematuria. No polyuria. MUSCULOSKELETAL:. No joint swelling. PSYCHIATRIC: Not anxious. No depression. No suicidal thoughts. No homicidal thoughts. SKIN: Intact. No rash. PHYSICAL EXAMINATION: V/S: Blood pressure 108/56, respiratory rate 20, heart rate 55, temperature 97.9 with saturation 95% on the room air. HEENT: Normocephalic, atraumatic. Mucosa dry. Pallor positive. No icterus. NECK: Supple. No JVD, no carotid bruit. No lymphadenopathy. LUNGS: Clear to auscultation. No rales or rhonchi. HEART: S1, S2 normal. No S3. No murmur, gallop or regurgitation. ABDOMEN: Epigastric discomfort present. Soft, nontender. Bowel sounds active. No rigidity. No rebound or guarding. No CVA tenderness. EXTREMITIES: No clubbing, cyanosis or pedal edema. MUSCULOSKELETAL: No joint swelling. NEUROLOGIC: Awake, alert but does not communication much secondary to the mental defect. No focal deficit. LYMPHATIC: No lymph nodes palpable. SKIN: Intact. ASSESSMENT: 1. Dehydration 2. Gastroenteritis 3. Urinary tract infection 4. Developmental delay 5. Down Syndrome 6. Hypokalemia PLAN: 1. Continue the Rocephin 2. Continue the IV fluids 3. Artificial drops 4. Replace the Potassium Will follow the patient in daily rounds. TIME SPENT: More than 35 minutes MTDD
--- NOTE | 2017-02-10 10:34 | MRI ---
EXAM: MRI pelvis without and with contrast HISTORY: Pelvic mass TECHNIQUE: Multiplanar, multisequence without and following the administration of intravenous Omnisc an, 10 mL COMPARISON: CT pelvis from 02/07/2017 and pelvic sonogram from 02/08/2017 FINDINGS: The uterus is enlarged up to 11.2 x 5.9 x 6.7 cm. The endometrial canal is distended with complex intraluminal material with increased T1 signal and intermediate increased T2 signal. A smal l simple cyst in the left ovary is 1.1 cm. The right fallopian tube is distended with bright T1 sign al material. There is a complex mass at the right ovary measuring 2.9 x 2.9 cm. The bladder is dist ended. A small volume free pelvic fluid is noted. No lymphadenopathy is detected. The intestines h ave normal caliber. The visible vascular structures have normal caliber. The bone marrow signal int ensity is normal. Bilateral hip joint effusions are noted. IMPRESSION: 1. Probable cervical stenosis with hematometra and right hematosalpinx. 2. Complex right adnexal mass. Resection and/or short-term follow-up recommended. 3. Gynecology consultation recommended. 4. Small volume of free pelvic fluid. 5. Distended bladder.
--- NOTE | 2017-02-16 14:04 | PN ---
DATE OF SERVICE: 02/08/17 SUBJECTIVE: The patient was admitted with gastroenteritis and found to have UTI and thrombocytopenia. The patient looks somewhat better, still eating and drinking good. CT of abdomen showed some pelvic mass and they wanted a pelvic ultrasound or MRI to be ordered. We will order the pelvic ultrasound initial for the further evaluation. REVIEW OF SYSTEMS: CONSTITUTIONAL: No fever, no chills. HEENT: Normal. ENDOCRINE: No weight gain, no weight loss. CVS: No angina symptoms. No CHF symptoms. No palpitations. No atypical chest pain for CAD. No shortness of breath. No PND, no orthopnea. RESPIRATORY: No cough, no hemoptysis. GI: No nausea, no vomiting. No abdominal pain. : No hematuria. No polyuria. MUSCULOSKELETAL:. No joint swelling. PSYCHIATRIC: Not anxious. No depression. No suicidal thoughts. No homicidal thoughts. SKIN: Intact. No rash. PHYSICAL EXAMINATION: V/S: Blood pressure 108/70, respiratory rate 20, heart rate 65, temperature 96.8 , saturation 98. HEENT: Normocephalic, atraumatic. Mucosa dry. Pallor positive. No icterus. NECK: Supple. No JVD, no carotid bruit. No lymphadenopathy. LUNGS: Decreased and clear to auscultation. No rales or rhonchi. HEART: S1, S2 normal. No S3. No murmur, gallop or regurgitation. ABDOMEN: Soft, nontender. Bowel sounds active. No rigidity. No rebound or guarding. No CVA tenderness. EXTREMITIES: No clubbing, cyanosis. 1+ edema. MUSCULOSKELETAL: No joint swelling. NEUROLOGIC: Awake, alert, oriented times three. No focal deficit. Communicates very little. LYMPHATIC: No lymph nodes palpable. SKIN: Intact. LABS: WBC 4.56, hgb 12.2, hct 36.4, plt count 35, sodium 142, potassium 4.0, chloride 113, bicarb 23, BUN 7, creatinine 0.66, total albumin 2.4 ASSESSMENT: 1. Pelvic mass under evaluation 2. Gastroenteritis 3. Dehydration getting better 4. UTI, organism is a mixed growth 5. Developmental delay 6. Downs Syndrome PLAN: 1. Pelvic ultrasound 2. IV fluids 3. Daily I&O's Will follow the patient in daily rounds. TIME SPENT: More than 35 minutes MTDD
--- NOTE | 2017-02-16 15:02 | DS ---
DATE OF SERVICE: 02/10/17 FINAL DIAGNOSIS: 1. Pelvic mass questionable for complex right adnexal mass likely neoplastic per MRI of the pelvis 2. Gastroenteritis 3. Dehydration is better 4. Anemia 5. Thrombocytopenia 6. Hypokalemia, resolved 7. Hypoproteinemia 8. Developmental delay 9. Downs Syndrome 10.UTI, mixed ifeoma 11.History of peptic ulcer disease. DISCHARGE INSTRUCTIONS: Discharge the patient back to the [facility]. Continue previous medications. Scheduled appointment with OBGYN. Followup with Claudia Ryan next week. MEDICATIONS AT DISCHARGE: Tylenol 325mg PO Q 4 hours PRN Akwa Tears 15ml OP twice a day Calcium 600+ Vitamin D 400 one each PO twice a day Prilosec 40mg PO QDAC Metrocream 45gram TP twice a day NEW PRESCRIPTIONS: None. DIET INSTRUCTIONS: Cardiac and healthy ACTIVITY: As much as tolerated. SMOKING: Never Smoker DISEASE SPECIFIC EDUCATION: Clearly explained about the pelvic mass as patient has a poor understanding. Talked to the patient's doggy daycare activities director at [facility] and clearly explained by the need for the followup with OBGYN and they verbalized understanding. HOSPITAL COURSE: Kathia Palma who is being followed by Claudia Ryan, Nurse Practitioner at [facility]. The patient been having the diarrhea and not able to keep anything down, not able to hold any been having soiled clothes so was sent to the emergency room for the evaluation and the patient was found to be dehydrated. Dr. Correa saw the patient in the emergency room and did the CT of the abdomen and pelvis. CT of the abdomen did show the large soft tissue pelvic mass otherwise no acute finding and she had a moderate hiatal hernia. At that time the patient was admitted to the hospital and started on the IV fluids. UTI is being treated with the Rocephin and waited for the culture. Meanwhile the pelvic mass was evaluate with the ultrasound which was questionable neoplastic and they wanted to be MRI of the pelvis. Meanwhile the patient is more active, up and about walking, eating good and talking good. The patient did not have anymore diarrhea. UTI organism did not grown just was mixed ifeoma. The patient' s IV line was out so Rocephin was stopped as it did not grown any organism. Meanwhile MRI of the pelvis confirmed that patient has a pelvic mass and needs to further evaluated by the OBGYN and most likely that adnexal mass is maybe a tumor so which been discussed with the patient's special education case manager at the [facility] and by Deann Lynch, special education case manager at the [facility] and I am going to talk to Claudia Ryan in the clinic and directly inform her about the seriously of the condition and the need for the OBGYN followup. TIME SPENT: MORE THAN 55 MINUTES MTDD
== END 2017-02-10 14:39 | disposition home or self-care (01) | DRG 392 ==
LOC: ED 16:33 → MEDSURG B 18:50
PROVIDERS: ADMIT Emergency Medicine; ATTEND Emergency Medicine
DX: K52.9 Noninfective gastroenteritis and colitis, unspecified (principal); N39.0 Urinary tract infection, site not specified; R19.09 Other intra-abdominal and pelvic swelling, mass and lump; D39.8 Neoplasm of uncertain behavior of other specified female genital organs; D64.9 Anemia, unspecified; D69.6 Thrombocytopenia, unspecified; E87.6 Hypokalemia; E77.8 Other disorders of glycoprotein metabolism; R19.7 Diarrhea, unspecified; E86.0 Dehydration; R11.10 Vomiting, unspecified; R13.10 Dysphagia, unspecified; Q90.9 Down syndrome, unspecified; Z87.19 Personal history of other diseases of the digestive system; Z79.899 Other long term (current) drug therapy
CPT/HCPCS: 36415; 80053; 81001; 85025; 87086; 96365; 99284

== ENCOUNTER 2017-02-07 14:35 | Outpatient (CLI) ==
[2017-02-06 20:19] VITALS: BMI 27.4
== END 2017-02-07 14:36 | disposition home or self-care (01) ==
LOC: CAR 14:35
PROVIDERS: ATTEND Physician Assistant
DX: G47.10 Hypersomnia, unspecified (principal)

== ENCOUNTER 2017-03-01 12:59 | Outpatient (CLI) | END 2017-03-01 13:00 | disposition home or self-care (01) | LOC: CAR 12:59 | PROVIDERS: ATTEND Physician Assistant | DX: G47.10 Hypersomnia, unspecified (principal) | CPT/HCPCS: 95810 ==

== ENCOUNTER 2018-04-04 08:52 | Outpatient (CLI) | payer OTHER ==
--- NOTE | 2018-04-04 11:59 | MAMMO ---
EXAM: Bilateral digital screening mammogram (2-D and 3-D) History: Screening Comparison: Bilateral mammogram 01/19/2017 Findings: MLO and CC views of bilateral breasts demonstrate scattered fibroglandular breast parenchy ma. CAD was reviewed by the radiologist. Tomosynthesis was performed. There are no dominant masses , no suspicious microcalcifications and no architectural distortions. Impression: Stable negative mammogram. Recommend followup routine screening mammography in 1 year. BIRADS 1
== END 2018-04-04 08:53 | disposition home or self-care (01) ==
LOC: RAD 08:52
PROVIDERS: ATTEND Physician Assistant
DX: Z12.31 Encounter for screening mammogram for malignant neoplasm of breast (principal)

== ENCOUNTER 2018-08-06 10:20 | Outpatient (CLI) | payer OTHER ==
--- NOTE | 2018-08-06 14:40 | DI ---
EXAM: Chest two views HISTORY: Wheezing COMPARISON: 05/09/2017 TECHNIQUE: Two views of the chest were performed FINDINGS: Lungs are clear. There is no pleural effusion or pneumothorax. The heart is normal in siz e. The mediastinal contour is normal. There is no acute abnormality of the bones.Moderate hiatal he rnia. IMPRESSION: 1. No acute cardiopulmonary process. 2. Moderate hiatal hernia
== END 2018-08-06 10:21 | disposition home or self-care (01) ==
LOC: RAD 10:20
PROVIDERS: ATTEND Nurse Practitioner Family
DX: R06.2 Wheezing (principal)

== ENCOUNTER 2018-08-08 14:31 | Outpatient (CLI) | END 2018-08-08 14:32 | disposition home or self-care (01) | LOC: CAR 14:31 | PROVIDERS: ATTEND Nurse Practitioner Family | DX: Z00.00 Encounter for general adult medical examination without abnormal findings (principal) | CPT/HCPCS: 93005; 93010 ==

== ENCOUNTER 2018-08-21 19:45 | Outpatient (CLI) | END 2018-08-21 19:46 | disposition home or self-care (01) | LOC: LAB 19:45 | PROVIDERS: ATTEND Nurse Practitioner Family | DX: D69.6 Thrombocytopenia, unspecified (principal) | CPT/HCPCS: 36415; 85025 ==

== ENCOUNTER 2018-09-07 20:49 | Outpatient (CLI) ==
[2018-09-07 21:30] VITALS: BMI 29.0
== END 2018-09-07 21:02 | disposition critical access hospital (66) ==
LOC: AMBL 20:49
PROVIDERS: ATTEND Family Medicine
DX: R55 Syncope and collapse (principal); R42 Dizziness and giddiness; W19.XXXA Unspecified fall, initial encounter

== ENCOUNTER 2018-09-07 21:13 | Emergency (ER) | payer OTHER ==
[2018-09-07 21:30] VITALS: BMI 29.0
--- NOTE | 2018-09-07 21:50 | ED.PDOC ---
General ED Provider: Dr. JENNIFER HAMMONDS MD Chief Complaint: Syncope Stated Complaint: lightheadedness Time Seen by Physician: 21:11 Mode of Arrival: Ambulance Information Source: Patient, Other Exam Limitations: No limitations Primary Care Provider: JARON BOSTON Nursing and Triage Documentation Reviewed and Agree: Yes Does patient meet sepsis criteria?: No If yes, has appropriate treatment been initiated?: Yes System Inflammatory Response Syndrome: Not Applicable Sepsis Protocol: For patient's 13 years and over: Temp is 96.8 and below OR 101 and greater Pulse >90 BPM Resp >20/minute Acutely Altered Mental Status Are patient's symptoms suggestive of a new infection, such as: -Pneumonia -Skin, Soft Tissue -Endocarditis -UTI -Bone, Joint Infection -Implantable Device -Acute Abdominal Infection -Wound Infection -Meningitis -Blood Stream Catheter Infection -Unknown Review of Systems - Review Of Systems Constitutional: Reports: Other (lightheaeded) Eyes: Reports: No symptoms Ears, Nose, Mouth, Throat: Reports: No symptoms Respiratory: Reports: No symptoms Cardiac: Reports: No symptoms GI: Reports: No symptoms : Reports: No symptoms Musculoskeletal: Reports: No symptoms Skin: Reports: No symptoms Neurological: Reports: No symptoms Endocrine: Reports: No symptoms Hematologic/Lymphatic: Reports: No symptoms All Other Systems: Reviewed and Negative Past Medical History - Past Medical History Previously Healthy: Yes Endocrine: Reports: None Cardiovascular: Reports: None, Other (edema) Respiratory: Reports: None Hematological: Reports: None, Other (low platelets) Gastrointestinal: Reports: None, Other (dysphagia) Genitourinary: Reports: None Neuro/Psych: Reports: None Musculoskeletal: Reports: None Cancer: Reports: None 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 - Surgical History General Surgical History: Reports: Unknown - Family History Family History: Reports: Unknown - Social History Smoking Status: Never smoker Hx Substance Use: No Alcohol Screening: None Physical Exam - Physical Exam Appearance: Obese Ill-appearing: Mild Pain Distress: None Eyes: KATIE, EOMI, Conjunctiva clear ENT: Ears normal, Nose normal, Oropharynx normal Respiratory: Airway patent, Breath sounds clear, Breath sounds equal, Respirations nonlabored Cardiovascular: RRR, Pulses normal, No rub, No murmur GI/: Soft, Nontender, No masses, Bowel sounds normal, No Organomegaly Musculoskeletal: Normal strength, ROM intact, No edema, No calf tenderness Skin: Warm, Dry, Normal color Neurological: Sensation intact, Motor intact, Reflexes intact, Cranial nerves intact, Alert, Oriented Psychiatric: Affect appropriate, Mood appropriate Critical Care Note - Critical Care Note Total Time (mins): 0 Course - Course Hematology/Chemistry: 09/07/18 21:26 09/07/18 21:26 Orders, Labs, Meds: Lab Review 09/07/18 09/07/18 09/07/18 21:26 21:26 23:30 WBC 26.02 H RBC 4.52 Hgb 14.2 Hct 42.8 MCV 94.7 MCH 31.4 H MCHC 33.2 RDW Coeff of Soila 14.5 Plt Count 30 L Immature Gran % (Auto) 1.3 Neut % (Auto) 88.0 Lymph % (Auto) 4.8 L Garrett % (Auto) 5.7 Eos % (Auto) 0.0 Baso % (Auto) 0.2 Immature Gran # (Auto) 0.4 Neut # (Auto) 22.9 H Lymph # (Auto) 1.2 Garrett # (Auto) 1.5 Eos # (Auto) 0.0 Baso # (Auto) 0.0 Clumped Platelets Podiatric Surgeon Anisocytosis Not present Sodium 138.0 Potassium 3.43 L Chloride 101.1 Carbon Dioxide 31.7 H Anion Gap 8.63 BUN 24.9 H Creatinine 1.05 Estimated GFR (MDRD) 52.00 BUN/Creatinine Ratio 23.71 Glucose 139.2 H Lactic Acid Calcium 8.26 L Total Bilirubin 0.53 AST 60.2 H ALT 54.0 H Alkaline Phosphatase 87.9 Total Protein 5.84 L Albumin 3.37 L Globulin 2.47 Albumin/Globulin Ratio 1.36 Procalcitonin Urine Color Yellow Urine Clarity Clear Urine pH 6.5 Ur Specific [place] 1.015 Urine Protein Negative Urine Glucose (UA) Negative Urine Ketones Negative Urine Blood Negative Urine Nitrite Negative Urine Bilirubin Negative Urine Urobilinogen 2.0 Ur Leukocyte Esterase Negative 09/07/18 09/07/18 23:40 23:40 WBC RBC Hgb Hct MCV MCH MCHC RDW Coeff of Soila Plt Count Immature Gran % (Auto) Neut % (Auto) Lymph % (Auto) Garrett % (Auto) Eos % (Auto) Baso % (Auto) Immature Gran # (Auto) Neut # (Auto) Lymph # (Auto) Garrett # (Auto) Eos # (Auto) Baso # (Auto) Clumped Platelets Anisocytosis Sodium Potassium Chloride Carbon Dioxide Anion Gap BUN Creatinine Estimated GFR (MDRD) BUN/Creatinine Ratio Glucose Lactic Acid 2.54 H Calcium Total Bilirubin AST ALT Alkaline Phosphatase Total Protein Albumin Globulin Albumin/Globulin Ratio Procalcitonin 1.71 Urine Color Urine Clarity Urine pH Ur Specific [place] Urine Protein Urine Glucose (UA) Urine Ketones Urine Blood Urine Nitrite Urine Bilirubin Urine Urobilinogen Ur Leukocyte Esterase Orders Category Date Time Status EKG-(ED ONLY) Stat CARDIO 09/07/18 21:16 Completed IV [ED IV/MEDIPORT/POWERPORT] .ONCE EMERGENCY 09/07/18 23:37 Active BLOOD CULTURE (ED ONLY) Stat LAB 09/07/18 23:59 Received CBC W/ AUTO DIFF Stat LAB 09/07/18 21:26 Completed CMP [COMPREHENSIVE METABOLIC PANEL] Stat LAB 09/07/18 21:26 Completed LACTIC ACID Stat LAB 09/07/18 23:40 Completed PROCALCITONIN Stat LAB 09/07/18 23:40 Completed RBC MORPHOLOGY Stat LAB 09/07/18 21:26 Completed UA [URINALYSIS C & S IF INDICATED] Stat LAB 09/07/18 23:30 Completed 0.9 % Sodium Chloride [Saline Flush] MEDS 09/07/18 23:37 Ordered 1 syr IVF PRN PRN Ceftriaxone Sodium [Rocephin] MEDS 09/07/18 23:37 Discontinued 1 gm .ROUTE .STK-MED ONE Ceftriaxone Sodium [Rocephin] 1 gm MEDS 09/07/18 23:22 Discontinued 0.9 % Sodium Chloride [Sodium Chloride] 50 ml IV ONCE Sodium Chloride 0.9% [Sodium Chloride] 1,000 ml MEDS 09/07/18 23:34 Discontinued IV BOLUS CXR [CHEST, 1V AP ONLY] Stat RADS 09/07/18 22:35 Completed Medications Generic Name Dose Route Start Last Admin Trade Name Freq PRN Reason Stop Dose Admin Sodium Chloride 1 syr 09/07/18 23:37 Saline Flush IVF PRN PRN To flush IV Discontinued Medications Generic Name Dose Route Start Last Admin Trade Name Freq PRN Reason Stop Dose Admin Ceftriaxone Sodium 1 gm/ 50 mls @ 75 mls/hr 09/07/18 23:22 09/07/18 23:42 Sodium Chloride IV 09/08/18 00:01 75 mls/hr ONCE STA Administration Sodium Chloride 1,000 mls @ 1,000 mls/hr 09/07/18 23:34 09/07/18 23:36 Sodium Chloride IV 09/08/18 00:33 1,000 mls/hr BOLUS STA Administration Vital Signs: Temp Pulse Resp BP Pulse Ox 09/08/18 00:00 92/55 L 09/07/18 23:43 101.0 F H 81 99/59 L 97 09/07/18 21:14 99.9 F H 85 20 88/51 L 97 Departure - Departure Time of Disposition: 02:00 Disposition: TRANSFER SNF Discharge Problem: Sepsis Qualifiers: Sepsis type: sepsis due to unspecified organism Qualified Code(s): A41.9 - Sepsis, unspecified organism Condition: Good Pt referred to PMD for follow-up: Yes IPMP verified?: No Allergies/Adverse Reactions: Allergies No Known Allergies Allergy (Verified 09/07/18 21:30) Home Medications: Ambulatory Orders Acetaminophen [Tylenol] 650 mg PO Q4H PRN 08/17/16 Calcium Carbonate/Vitamin D3 [Calcium 600 + Vit D 400 Tablet] 1 each PO BID Metronidazole [Metrocream] 45 gm TP BID 02/06/17 Omeprazole [Prilosec] 40 mg PO BID 02/06/17 Albuterol Sulfate [Proventil Hfa] 2 inh IH TID PRN 09/07/18 Eucalyptus Oil/Menthol/Camphor [Vicks Vaporub Ointment] 50 gm TP DAILY 09/07/18 Glycerin/Propylene Glycol [Advanced Eye Relief Eye Drops] 1 drop OP DAILY PRN Levothyroxine Sodium 25 mcg PO DAILY 09/07/18 Polyvinyl Alcohol [Artificial Tears] 1 drop OP BID 09/07/18 Prednisone 20 mg PO BID 09/07/18 Transfer Form Completed: Yes Disposition [facility]iscussed With: [facility], [facility]
--- NOTE | 2018-09-07 22:58 | DI ---
Exam: Chest one-view History: Leukocytosis FINDINGS: Normal cardiomediastinal contours. Normal pulmonary vasculature. The lungs are mildly hy perexpanded. No focal infiltrate. Prior hiatus hernia shadow is not well seen on current study. No acute chest wall abnormality. Impression: No acute cardiopulmonary disease
[2018-09-07] MEDS ORDERED: ROCEPHIN 1 GM in SODIUM CHLORIDE 50 ML IV STA (23:22)
[2018-09-07] MEDS ORDERED: SODIUM CHLORIDE 1,000 ML IV STA (23:34)
[2018-09-07] MEDS ORDERED: ROCEPHIN ONE (23:37)
[2018-09-08 02:23] VITALS: BP 97/52; TEMP 100
== END 2018-09-08 02:55 ==
LOC: ED 21:13
DX: A41.9 Sepsis, unspecified organism (principal); R55 Syncope and collapse; R42 Dizziness and giddiness; Z79.899 Other long term (current) drug therapy
CPT/HCPCS: 36415; 80053; 81001; 83605; 84145; 85008; 85025; 87040; 93005; 93010; 96361; 96365; 99285

== ENCOUNTER 2018-09-08 02:58 | Outpatient (CLI) ==
[2018-09-07 21:30] VITALS: BMI 29.0
== END 2018-09-08 03:19 | disposition short-term general hospital (02) ==
LOC: AMBL 02:58
PROVIDERS: ATTEND Family Medicine
DX: R40.4 Transient alteration of awareness (principal); R79.89 Other specified abnormal findings of blood chemistry; R53.1 Weakness; F79 Unspecified intellectual disabilities

== ENCOUNTER 2018-09-13 14:02 | Outpatient (CLI) | payer OTHER | END 2018-09-13 14:03 | disposition home or self-care (01) | LOC: LAB 14:02 | PROVIDERS: ATTEND Nurse Practitioner Family | DX: D69.6 Thrombocytopenia, unspecified (principal) | CPT/HCPCS: 36415; 85025 ==

== ENCOUNTER 2018-09-19 13:26 | Outpatient (CLI) ==
--- NOTE | 2018-09-19 15:12 | DI ---
EXAM: CHEST FRONTAL AND LATERAL VIEWS HISTORY: Pneumonia. COMPARISON: 09/07/2018 FINDINGS: Heart size and mediastinal contour remain within normal limits. Paraesophageal hernia i s suggested. No acute infiltrates are seen. No vascular congestion. There is no consolidation, vis ible pleural fluid or pneumothorax. Bones reveal no acute fracture. IMPRESSION: Paraesophageal hernia. No definite consolidated pneumonia.
== END 2018-09-19 13:27 | disposition home or self-care (01) ==
LOC: RAD 13:26
PROVIDERS: ATTEND Nurse Practitioner Family
DX: Z87.01 Personal history of pneumonia (recurrent) (principal)